=== PATIENT | female | born 1940 | race Caucasian/White ===

== ENCOUNTER 2018-04-18 15:00 | Emergency (ER) | payer MEDICARE, BC ==
[~2018-04-18] VITALS: Ht 157.5 cm; Wt 68.2 kg
[~2018-04-18 15:00] MED LIST: ACETAMINOPHEN325 MG PO; ACETAMINOPHEN500 M1 PO; CALCIUM 600+D T1 TA1 PO; ELIQUIS2.5 MG PO; FLUTICASONE PRO16 GM NS; HYDROCODONE-APA1 TAB PO; LISINOPRIL-HCTZ1 T13 PO; MULTI-DAY VITAM1 TAB PO; TOPROL XL25 MG PO; ULTRAM50 MG PO; ZOFRAN4 MG PO; ZYRTEC10 MG PO
[2018-04-18 15:24] VITALS: BP 160/87; Ht 157.5 cm; Wt 68.2 kg
== END 2018-04-18 20:03 | disposition left against medical advice (07) ==
LOC: D.ER 15:00
DX: K59.00 Constipation, unspecified (principal)